=== PATIENT | female | born 2000 | race African-American/Black ===

== ENCOUNTER 2024-11-29 12:30 | Emergency (ER) | payer MEDICAID, SELFPAY ==
[2024-11-29 12:37] VITALS: BP 123/78; PULSE 72; RESP 18; TEMP 37.1; O2SAT 98
--- NOTE | 2024-11-29 13:01 | ED.GENADULT ---
HPI - General Adult General Chief complaint: Abdominal Pain Stated complaint: Abdominal pain Time Seen by Provider: 11/29/24 12:33 History of Present Illness HPI narrative: Patient is a very pleasant 24-year-old female has had a 1-year-old child, she has had some dysuria frequency and some intermittent nausea for the last couple of weeks. She has had some lower abdominal discomfort the last couple of weeks as well. Does not have any marked fever, has not been vomiting. She has had UTI before had ovarian cyst before. Does report that this seems like a UTI given the frequency and burning with urination. Her last menstrual period was about 3 and half weeks ago. She moved from [facility] to [place], she is currently employed at [employer]. Patient denies rigors chills, or hematuria Related Data Previous Rx's ?Medication ?Instructions ?Recorded sulfamethoxazole 800 1 tab PO BID 5 days #10 tabs 11/29/24 mg-trimethoprim 160 mg tablet Allergies Allergy/AdvReac Type Severity Reaction Status Date / Time No Known Drug Allergies Allergy Verified 11/29/24 12:42 Review of Systems Status of ROS: Reports: 6 or more systems reviewed and unremarkable except as noted in History and below PFSH PFS Social History Smoking Status: Never smoker How often do you have a drink containing alcohol: never AUDIT-C Alcohol total score: 0 Non-prescribed substance use: marijuana (any form) service: No Exam Narrative: Exam Narrative: Objective: Patient's vital signs look within normal limits she is afebrile She is pleasant alert no distress Abdomen is benign soft nontender except in her right side of her lower abdomen not near her appendix but more over her bladder on the right side. Over her symphysis. No rebound. No masses. Extremities are no edema Neurologic nonfocal Good peripheral perfusion noted. Const: Vital Signs, click to edit/add: Vital Signs - 24 hr 11/29/24 12:37 Temperature 98.8 F Pulse Rate [Pulse Oximeter] 72 Respiratory Rate 18 Blood Pressure [Ri ght Upper Arm] 123/78 Pulse Oximetry 98 Oxygen Delivery Me thod Room Air Course Vital Signs Vital signs: Initial Vital Signs Temperature 98.8 F 11/29/24 12:37 Temperature Source Temporal Artery Scan 11/29/24 12:37 Pulse Rate 72 11/29/24 12:37 Respiratory Rate 18 11/29/24 12:37 Blood Pressure 123/78 11/29/24 12:37 Blood Pressure Mean 93 11/29/24 12:37 Blood Pressure Position Sitting 11/29/24 12:37 Pulse Oximetry 98 11/29/24 12:37 Oxygen Delivery Method Room Air 11/29/24 12:37 Vital Signs Temperature 98.8 F 11/29/24 12:37 Pulse Rate 72 11/29/24 12:37 Respiratory Rate 18 11/29/24 12:37 Blood Pressure 123/78 11/29/24 12:37 Pulse Oximetry 98 11/29/24 12:37 Oxygen Delivery Method Room Air 11/29/24 12:37 Temperature 98.8 F 11/29/24 12:37 Pulse Rate 72 11/29/24 12:37 Respiratory Rate 18 11/29/24 12:37 Blood Pressure 123/78 11/29/24 12:37 Pulse Oximetry 98 11/29/24 12:37 Oxygen Delivery Method Room Air 11/29/24 12:37 Medical Decision Making [facility] Narrative Medical decision making narrative: 24-year-old female with urinary tract infection symptoms with dysuria frequency, she also has had some intermittent nausea over the last couple of weeks and some suprapubic discomfort. I think ruling out would be appropriate as well. Will check a test serum, will check urinalysis, lab studies. Disposition pending findings above. She is comfortable assessment plan. Addendum 2:00 p.m.: The patient's test is negative, she has pyuria, culture be obtained. Patient will be given Rocephin 500 mg IM and follow that with Septra DS 1 p.o. b.i.d. x5 days. Drink ascitic juice, normal activity and diet. Return if problems or concerns. Lab Data Labs: Lab Results 11/29/24 11/29/24 Range/Units 13:03 Unknown WBC 4.76 (4.50-11.00) K/uL RBC 4.95 (4.00-5.20) m/uL Hgb 13.4 (12.0-16.0) gm/dL Hct 41.7 (33.0-51.0) % MCV 84 (80-100) fL MCH 27 (26-34) pg MCHC 32 (32-36) gm/dL RDW Coeff of Kwasi 13.2 (11.5-15.5) % Plt Count 273 (140-440) K/uL Neut % (Auto) 47.3 (42.0-72.0) % Lymph % (Auto) 38.4 (20-44) % [place] % (Auto) 9.9 (0.0-11.0) % Eos % (Auto) 3.4 (0.0-7.0) % Baso % (Auto) 0.8 (0.0-3.0) % Neut # (Auto) 2.25 (1.7-7.0) K/uL Lymph # (Auto) 1.83 (0.90-2.90) K/uL [place] # (Auto) 0.50 (0.00-0.90) K/UL Eos # (Auto) 0.16 (0.00-0.50) K/uL Baso # (Auto) 0.04 (0.00-0.30) K/uL Abs Immat Gran (auto) 0.01 (0.00-0.30) K/uL Imm/Tot Granulo (auto) 0.2 % Sodium 139 (135-149) mmol/L Potassium 4.2 (3.6-5.1) mmol/L Chloride 105 (96-114) mmol/L Carbon Dioxide 27 (20-32) mmol/L Anion Gap 7 (7-15) mEq/L BUN 12 (5-24) mg/dL Creatinine 0.9 (0.5-1.5) mg/dL Estimated GFR 92 ml/min Glucose 86 (60-115) mg/dL Calcium 9.4 (8.4-10.6) mg/dL C-Reactive Protein < 0.5 L (0.5-1.0) mg/dL HCG, Qual Negative (Negative) Urine Color Dark yellow (Yellow) Urine Appearance Cloudy A (Clear) Urine pH 6.0 (5.0-8.5) Ur Specific [place] 1.025 (1.000-1.030) Urine Protein Negative (Negative) Urine Glucose (UA) Negative (Negative) Urine Ketones Negative (Negative) Urine Blood Negative (Negative) Urine Nitrite Negative (Negative) Urine Bilirubin Negative (Negative) Urine Urobilinogen 0.2 (0.2-1.0) Ur Leukocyte Esterase Trace A (Negative) Urine RBC 0-2 (0-2) Urine WBC 5-10 A (0-5) Ur Squamous Epith Cells Moderate A (None-Few) Urine Bacteria Few A (None) Urine Mucus Many A (None) Discharge Plan Discharge Clinical Impression: Dysuria Patient Disposition: Home, Self-Care Condition: Stable Additional Instructions: Drink cranberry juice, fluids, Septra antibiotic 1 pill twice a day for 5 days start today. Return if problems or concerns. Activity Level: No Restrictions Discharge Diet: Regular Prescriptions: New sulfamethoxazole-trimethoprim 800-160 mg tablet 1 tab PO BID 5 Days Qty: 10 0RF Stand Alone Forms: [employer] [facility] Info Instructions
[2024-11-29 13:19] LABS: Appearance Urine Cloudy (Clear); Bilirubin Urine Negative (Negative); Blood Urine Negative (Negative); Color Urine Dark yellow (Yellow); Glucose Urine Negative (Negative); Ketones Urine Negative (Negative); Leukocyte Esterase Urine Trace (Negative); Nitrite Urine Negative (Negative); Protein Urine Negative (Negative); Specific Gravity Urine 1.025 (1.000-1.030); Urobilinogen Urine 0.2 (0.2-1.0)
[2024-11-29 13:23] LABS: Basophils Absolute Auto 0.04 K/uL (0.00-0.30); Basophils Percent Auto 0.8 % (0.0-3.0); Eosinophils Absolute Auto 0.16 K/uL (0.00-0.50); Eosinophils Percent Auto 3.4 % (0.0-7.0); Hematocrit 41.7 % (33.0-51.0); Hemoglobin* 13.4 gm/dL (12.0-16.0); Immature Granulocytes Abs Auto 0.01 K/uL (0.00-0.30); Immature Granulocytes Pct Auto 0.2 %; Lymphocytes Absolute Auto 1.83 K/uL (0.90-2.90); Lymphocytes Percent Auto 38.4 % (20-44); Mean Corpuscular HGB Conc 32 gm/dL (32-36); Mean Corpuscular Hemoglobin 27 pg (26-34); Mean Corpuscular Volume 84 fL (80-100); Monocytes Percent Auto 9.9 % (0.0-11.0); Neutrophils Absolute Auto 2.25 K/uL (1.7-7.0); Neutrophils Percent Auto 47.3 % (42.0-72.0); Platelet Count* 273 K/uL (140-440); RDW Coefficient of Variation % 13.2 % (11.5-15.5); Red Blood Count 4.95 m/uL (4.00-5.20); White Blood Count* 4.76 K/uL (4.50-11.00)
[2024-11-29 13:25] LABS: Slide Review Reflex No
[2024-11-29 13:37] LABS: Chloride* 105 mmol/L (96-114); Potassium* 4.2 mmol/L (3.6-5.1); Sodium* 139 mmol/L (135-149)
[2024-11-29 13:39] LABS: RBC Urine 0-2 (0-2); Squamous Epithelial Cell Urine Moderate (None-Few)
[2024-11-29 13:40] LABS: Bacteria Urine Few; Mucus Urine Many
[2024-11-29 13:40] LABS: Blood Urea Nitrogen* 12 mg/dL (5-24); Creatinine* 0.9 mg/dL (0.5-1.5); Estimated Glomerular Filt Rate 92 ml/min
[2024-11-29 13:41] LABS: Anion Gap 7 mEq/L (7-15); Calcium* 9.4 mg/dL (8.4-10.6); Carbon Dioxide* 27 mmol/L (20-32); Glucose* 86 mg/dL (60-115)
[2024-11-29 13:46] LABS: C Reactive Protein* < 0.5 mg/dL (0.5-1.0)
[2024-11-29 13:47] LABS: HCG Qualitative Serum* Negative (Negative)
[2024-11-29] MEDS: LIDOCAINE 1% 5 ml (pf) 5 ML VIAL 1 ML IM (14:09)
[2024-11-29] MEDS: cefTRIAXone 500 MG VIAL IM (14:09)
== END 2024-11-29 14:21 | disposition home or self-care (01) ==
PROVIDERS: Emergency Provider Family Medicine
DX: R30.0 Dysuria (principal)
CPT/HCPCS: 36415; 80048; 81001; 84703; 85025; 86140; 87086; 96372; 99283; J0696